=== PATIENT | female | born 1980 | race African-American/Black ===

== ENCOUNTER → 2020-07-24 | Day surgery (SDC) | payer OTHER ==
[~2020-07-24] MED LIST: AUVI-Q0.1 MG/0.1 IM; CLARITIN10 MG PO; DESVENLAFAXINE50 M3 PO; DESYREL50 MG PO; LEVBID0.375 MG PO; ONDANSETRON ODT8 MG PO; PERCOCET 10-321 EACH PO; PRISTIQ25 MG PO; PROAIR DIGIHAL90 MCG INH
[2020-07-24 08:11] LABS: HCG (URINE) SCREEN NEGATIVE (NEGATIVE)
[2020-07-24 08:32] LABS: HCT 42.4 % (37.0-47.0); HGB 13.8 g/dl (12.5-16.0); MCH 27.2 pg (25.0-31.0); MCHC 32.5 g/dL (32.0-36.0); MCV 83.6 fL (78.0-100.0); MPV 11.5 fL (6.0-9.5); RBC 5.07 M/uL (4.20-5.40); RDW 15.5 % (11.5-14.0); WBC 8.9 K/uL (4.0-10.5)
[2020-07-24 09:39] LABS: ALBUMIN 3.5 g/dL (3.4-5.0); BILIRUBIN - TOTAL 0.4 mg/dL (0.2-1.0); BUN/CREAT RATIO (CALC) 10.1 RATIO; CREATININE 0.69 mg/dL (0.51-0.95); GLOBULIN (CALCULATION) 3.7 g/dL; POTASSIUM 3.7 mmol/L (3.5-5.1); TOTAL PROTEIN 7.2 g/dL (6.4-8.2)
== END | disposition home or self-care (01) ==
LOC: FAS 07:48
PROVIDERS: Anesthesiology; Surgery
DX: K81.1 Chronic cholecystitis (principal); R19.7 Diarrhea, unspecified; K66.0 Peritoneal adhesions (postprocedural) (postinfection); J45.909 Unspecified asthma, uncomplicated; F31.9 Bipolar disorder, unspecified; K21.9 Gastro-esophageal reflux disease without esophagitis; I10 Essential (primary) hypertension; G43.909 Migraine, unspecified, not intractable, without status migrainosus; G47.30 Sleep apnea, unspecified; E10.9 Type 1 diabetes mellitus without complications; Z98.84 Bariatric surgery status
CPT/HCPCS: 36415; 74300; 80053; 84703; C1758; J0360; J1100; J1170; J1885; J2250; J2405; J2704; J2710; J3010; J7050; J7120; Q9967